=== PATIENT | female | born 1985 | race African-American/Black ===

== ENCOUNTER 2017-08-11 14:37 | Emergency (ER) | payer SELFPAY ==
[~2017-08-11] VITALS: Ht 170.2 cm; Wt 99.8 kg
[2017-08-11 16:30] VITALS: BP 137/93
[2017-08-11 17:17] LABS: Urine Bacteria NONE SEEN /hpf (None Seen); Urine Blood Negative /uL (Negative); Urine Mucus FEW (None Seen); Urine Specific Gravity 1.015 (1.001-1.035); Urine WBC 4 /hpf (0 - 5)
== END 2017-08-11 16:57 | disposition home or self-care (01) ==
LOC: ER 14:37
DX: O26.892 Other specified pregnancy related conditions, second trimester (principal); R10.9 Unspecified abdominal pain; F12.10 Cannabis abuse, uncomplicated; Z3A.21 21 weeks gestation of pregnancy
CPT/HCPCS: 36415; 76805; 81001; 84702